=== PATIENT | female | born 1935 | race Caucasian/White ===

== ENCOUNTER 2019-03-11 16:12 | Emergency (ER) | payer MEDICARE ==
--- NOTE | 2019-03-11 16:20 | ER Report ---
History and Physical Time Seen By MD: 16:17 HPI/ROS CHIEF COMPLAINT: Right arm numbness and weakness 6 weeks, bilateral numbness of feet, legs get cold at night HISTORY OF PRESENT ILLNESS: 83-year-old female patient presents to the emergency room with complaint of right arm numbness and weakness 6 weeks. She states that this started with no injury. She states she does have pain seems to worsen the hand. Patient states that she has weakness in the hand. She states she's not able to open any jars. She states she is to give them to her daughter to open. She states she does have pain to the hand, she states she does have pain to the shoulder as well. She states she is not taking any medication for this. Patient states over the last week she has had numbness and coldness to the bilateral lower extremities. She states that often times discussed that she feels fine, but then at 4:00 in the morning her arms are especially cold. She states that she has not had any injury. She hasn't taken any medication for this. She was referred to the emergency room by her make up operator helper after an evaluation and being told about the symptoms she is having with her arm and legs. REVIEW OF SYSTEMS: Respiratory: No cough, no dyspnea. Cardiovascular: No chest pain, no palpitations. Gastrointestinal: No vomiting, no abdominal pain. Musculoskeletal: No back pain. Allergies: Coded Allergies: No Known Drug Allergies (Unverified , 03/11/19) Home Meds Active Scripts Methylprednisolone (METHYLPREDNISOLONE) 4 Mg Tab.ds.pk, 4 MG PO DIRECTED, #21 TAB Prov:JODYNUBIA ETCHER [employer]ENG[employer]VING 03/11/19 Reported Medications Lisinopril (LISINOPRIL) 40 Mg Tablet, 40 MG PO QDAY, TAB 03/11/19 Amlodipine Besylate (AMLODIPINE BESYLATE) 5 Mg Tablet, 1 TAB PO QDAY, TAB 03/11/19 Carvedilol (CARVEDILOL) 6.25 Mg Tab, 6.25 MG PO BID, TAB 03/11/19 Cholecalciferol (Vitamin D3) (VITAMIN D3) 1,000 Unit Tablet, 5000 UNIT PO QDAY, TAB 03/11/19 Aspirin (ASPIR 81) 81 Mg Tablet.dr, 81 MG PO QDAY, TAB 03/11/19 Past Medical/Surgical History Patient has no pertinent medical history. Patient has surgical history of ablation. Reviewed Nurses Notes: Yes Constitutional Vital Sign - Last 24 Hours 03/11/19 03/11/19 03/11/19 03/11/19 16:16 16:27 16:30 16:42 Temp 98.2 Pulse 77 71 87 Resp 18 B/P (MAP) 195/100 150/79 (102) Pulse Ox 93 93 94 O2 Delivery Room Air 03/11/19 03/11/19 03/11/19 03/11/19 17:27 17:30 17:42 17:57 Pulse 71 74 73 B/P (MAP) 156/86 (109) Pulse Ox 92 89 90 03/11/19 03/11/19 03/11/19 03/11/19 18:00 18:05 18:20 18:30 Pulse 71 72 B/P (MAP) 152/88 (109) 165/90 (115) Pulse Ox 90 97 03/11/19 03/11/19 18:35 18:50 Pulse 68 Pulse Ox 91 78 Physical Exam General Appearance: The patient is alert, has no immediate need for airway protection and no current signs of toxicity. Respiratory: Chest is non tender, lungs are clear to auscultation. Cardiac: regular rate and rhythm Gastrointestinal: Abdomen is soft and non tender, no masses, bowel sounds normal. Musculoskeletal: Neck: Neck is supple and non tender. Extremities have full range of motion and are non tender. Skin: No rashes or lesions. Neuro: Patient has no scleral weakness in the right arm and hand. Patient has good sensation in her feet as well as good strength with flexion and extension. Cranial nerves II through XII grossly intact. DIFFERENTIAL DIAGNOSIS: After history and physical exam differential diagnosis was considered for stroke, thoracic outlet syndrome, stenosis of the descending aorta. Medical Decision Making Data Points Result Diagram: 03/11/19 1620 03/11/19 1620 Laboratory Hematology Test 03/11/19 16:20 White Blood Count 8.7 k/uL (4.5-11.0) Red Blood Count 4.96 M/uL (4.17-5.56) Hemoglobin 16.0 g/dL (12.0-16.0) Hematocrit 46.5 % (34.0-47.0) Mean Corpuscular Volume 93.8 fL (80.0-96.0) Mean Corpuscular Hemoglobin 32.3 pg (26.0-33.0) Mean Corpuscular Hemoglobin Concent 34.4 g/dL (32.0-36.0) Red Cell Distribution Width 14.0 % (11.5-14.5) Platelet Count 266 K/uL (150-450) Mean Platelet Volume 9.3 fL (7.2-11.1) Neutrophils (%) (Auto) 61.4 % (39.4-72.5) Lymphocytes (%) (Auto) 23.7 % (17.6-49.6) Monocytes (%) (Auto) 8.6 % (4.1-12.4) Eosinophils (%) (Auto) 5.5 % (0.4-6.7) Basophils (%) (Auto) 0.8 % (0.3-1.4) Nucleated RBC Relative Count (auto) 0.1 /100WBC Neutrophils # (Auto) 5.3 K/uL (2.0-7.4) Lymphocytes # (Auto) 2.1 K/uL (1.3-3.6) Monocytes # (Auto) 0.7 K/uL (0.3-1.0) Eosinophils # (Auto) 0.5 K/uL (0.0-0.5) Basophils # (Auto) 0.1 K/uL (0.0-0.1) Nucleated RBC Absolute Count (auto) 0.01 K/uL Chemistry Test 03/11/19 16:20 Sodium Level 138 mmol/L (137-145) Potassium Level 4.2 mmol/L (3.5-5.0) Chloride Level 103 mmol/L (98-107) Carbon Dioxide Level 26 mmol/L (22-31) Blood Urea Nitrogen 22 mg/dl (7-18) Creatinine 0.90 mg/dl (0.52-1.04) Glomerular Filtration Rate Calc > 60.0 Random Glucose 104 mg/dl (75-110) Calcium Level 10.0 mg/dl (8.4-10.2) Total Bilirubin 0.5 mg/dl (0.2-1.3) Aspartate Amino Transf (AST/SGOT) 29 U/L (0-35) Alanine Aminotransferase (ALT/SGPT) 34 U/L (0-56) Alkaline Phosphatase 63 U/L (0-126) Troponin I < 0.012 ng/ml B-Type Natriuretic Peptide 106 pg/ml (0-100) Total Protein 7.4 g/dl (6.3-8.2) Albumin 4.6 g/dl (3.5-5.0) Coagulation Test 03/11/19 16:20 Prothrombin Time 12.5 seconds (12.0-14.4) Prothromb Time International Ratio 0.93 Activated Partial Thromboplast Time 27 seconds (23-35) EKG/Imaging EKG Interpretation 12 lead EKG: Rhythm: normal sinus rhythm [place]: normal QRS: normal ST segments: Nonspecific ST abnormality Imaging EXAMINATION: CT Cervical spine without intravenous contrast HISTORY: Weakness to right arm. COMPARISON: None. TECHNIQUE: Axial images were obtained from the skull base through the upper thoracic spine without IV contrast administration. Coronal and sagittal reformatted images were obtained from the axial source data. One of the following dose optimization techniques was utilized in the performance of this exam: Automated exposure control; adjustment of the mA and/or kV according to the patient's size; or use of an iterative recons truction technique. Specific details can be referenced in the facility's radiology CT exam operational policy. FINDINGS: Alignment: Normal. Cranio-cervical junction: Negative. Vertebral bodies: Vertebral body heights are maintained. No acute fracture. Posterior elements: Negative. No acute fracture. Hardware: None. Disc Spaces: Moderate multilevel disc degenerative changes. There are disc bul ges and posterior endplate osteophytes at multiple levels. There is mild narrowing of the spinal canal at the C2-3 and C3-4 levels. There is moderate spinal canal stenosis at the C4-5 level, mild to moderate spinal canal stenosis at the C5-6 level, and mild spinal canal stenosis at the C6-7 level. U ncovertebral spurring narrows the neural foramina at multiple levels. On the right there is mild neural foraminal stenosis at the C3-4 level, moderate neural foraminal stenosis at the C4-5 level, moderate to severe neural foraminal stenosis at the C5-6 level, and mild neural foraminal stenosis at the C6-7 level. On the left there is mild neural foraminal stenosis at the C3-4 level and C4-5 level, moderate neural foraminal stenosis at the C5-6 level, and mild neural foraminal stenosis at the C6-7 level. Soft tissues: Diffuse nodularity of the thyroid gland. Visualized upper chest: Mild calcified plaque at the aortic arch and origins of the subclavian arteries. IMPRESSION: No acute fracture or dislocation of the cervical spine. Moderate multilevel cervical spondylosis. There is moderate spinal canal stenosis at the C4-5 level and mild to moderate spinal canal stenosis at the C5- 6 level. Multilevel neural foraminal stenosis is greatest on the right at the C5-6 level where there is moderate to severe neural foraminal stenosis. Report Dictated By: Israel Yang MD at 03/11/2019 6:10 PM Report E-Signed By: Israel Yang MD at 03/11/2019 6:21 PM EXAMINATION: Chest 2 Views HISTORY: Weakness, leg numbness COMPARISON: None. FINDINGS: The lungs are clear. No focal consolidation or pleural fluid. No pneumothorax. Normal cardiomediastinal silhouette, with normal heart size and pulmonary vascularity. Aortic calcification. Visualized osseous structures are unremarkable. IMPRESSION: Negative chest. Report Dictated By: Memo Phillips MD at 03/11/2019 5:25 PM Report E-Signed By: Memo Phillips MD at 03/11/2019 5:26 PM EXAMINATION: CT head without IV contrast HISTORY: Right hand numbness COMPARISON: None. TECHNIQUE: Contiguous axial images were obtained from the skull base to the vertex without intravenous contrast. Sagittal and coronal reformatted images are also submitted. One of the following dose optimization techniques was utilized in the pe rformance of this exam: Automated exposure control; adjustment of the mA and/or kV according to the patient's size; or use of an iterative reconstruction technique. Specific details can be referenced in the facility's radiology CT exam operational policy. FINDINGS: Brain volume: Mild generalized atrophy with associated concordant prominence of the ventricular system. Ventricles: Normal. Acute ischemic changes: None. Hemorrhage: None. Masses/edema: None. Barber-white: Negative. White matter: Patchy low-density in the left frontal subcortical white matter, anterior to the motor strip. Vessels: Calcified plaque of the vertebral arteries and carotid siphons at the skull base. Extra-axial: Negative. Calvarium/scalp: Negative. Skull base/visualized face: Negative. Visualized sinuses/orbits: Negative. IMPRESSION: 1. No acute atrial findings or focal abnormalities to explain patient's symptoms. 2. Mild atrophy, atherosclerotic disease and chronic appearing white matter changes likely related to age and vascular risk factors. Report Dictated By: GENIE DUPREE at 03/11/2019 5:28 PM Report E-Signed By: GENIE DUPREE at 03/11/2019 5:31 PM EXAMINATION: CT Thoracic spine without intravenous contrast HISTORY: Weakness to right arm. COMPARISON: None. TECHNIQUE: Axial images were obtained through the thoracic spine without IV contrast administration. Coronal and sagittal reformatted images were obtained from the axial source data. One of the following dose optimization techniques was utilized in the performance of this exam: Automated exposure control; adjustment of the mA and/or kV according to the patient's size; or use of an iterative reconstruction technique. Specific details can be referenced in the facility's radiology CT exam operational policy. FINDINGS: Alignment: Normal. Vertebral bodies: Vertebral body heights are maintained. The bones are diffusely osteopenic. No acute fracture. Posterior elements: No acute fracture. Hardware: None. Disc Spaces: Multilevel disc degenerative changes with vacuum disc phenomenon an d endplate osteophytes at multiple level. Posterior disc osteophyte complex at the C6-7 level causes mild spinal canal stenosis. Small disc bulges/protrusions at other levels slightly narrow the thecal sac. Soft tissues: Negative. Visualized lungs / abdomen: A 10 mm nodule in the right lobe of the thyroid. Calcified plaque at the aortic arch and origins of the great vessels. Splenic artery calcifications. Coronary artery calcifications. IMPRESSION: No acute fracture or dislocation of the thoracic spine. Mild multilevel disc degenerative changes in the thoracic spine. Posterior disc osteophyte complex at the C6-7 levels causes mild spinal canal stenosis. Coronary artery calcifications. A solitary 10 mm thyroid nodule in the right lobe has no suspicious features. In the absence of clinical risk factors for thyroid cancer, this finding is highly likely benign and no additional imaging or follow-up is recommended. Report Dictated By: Israel Yang MD at 03/11/2019 5:42 PM Report E-Signed By: Israel Yang MD at 03/11/2019 5:51 PM ED Course/Re-evaluation ED Course Patient was admitted to exam room, history and physical were obtained. Different ial diagnoses were considered. On examination lungs are clear, heart is regular, abdomen soft nontender. Patient did have noticeable weakness to the right arm. She did note pain with movement of the right arm but definitely had a weak mechanical oxidizer. Patient had no tenderness to the lower legs. She had good strength with dorsal flexion and plantar flexion of the feet and ankles. A CT scan of the head, cervi nahoim spine, thoracic spine and chest x-ray were done. A CBC, CMP, BNP, EKG, troponin were done. Troponin was negative, BNP was 106, EKG showed a normal sinus rhythm with a nonspecific ST abnormality. CBC, CMP were unremarkable. CT scan of the cervical spine did show some moderate spinal canal narrowing. That was noted at C4-C5 and C6-C7. Thoracic spine did show some narrowing at C6-C7 as well. CT scan of head showed no acute findings. With the findings being most notable in the cervical spine I did discuss the case with Dr. Cotton. His recognition was start her on a Medrol Dosepak. She is welcome to follow-up with him in the clinic February. She may return to [place] as scheduled in April as l fran as she is not having any loss of bowel or bladder function or stumbling over her feet. I discussed the patient who verbalized understanding and agreement. I explained that it was my hope that with the Medrol Dosepak would decrease the swelling where there is narrowing of the spinal canal which would help with the symptoms that she is having. Patient verbalized understanding and agreement with plan. Decision to Disposition Date: Mar 11, 2019 Decision to Disposition Time: 19:05 Depart Departure Latest Vital Signs Vital Signs Date Time Temp Pulse Resp B/P (MAP) Pulse Ox O2 Delivery O2 Flow Rate FiO2 03/11/19 18:50 78 03/11/19 18:35 68 03/11/19 18:30 165/90 (115) 03/11/19 16:16 98.2 18 Room Air Impression: Primary Impression: Cervical radiculopathy Condition: Improved Disposition: HOME OR SELF-CARE Referrals: GENIE COTTON MD New Scripts Methylprednisolone (METHYLPREDNISOLONE) 4 Mg Tab.ds.pk 4 MG PO DIRECTED, #21 TAB Prov: NUBIA VERA 03/11/19 Patient Instructions: Cervical Radiculopathy (ED) Additional Instructions: Increase fluid intake. Get plenty of rest. Take the medication as prescribed. Return to the ER if condition worsens. Talking with Dr. Cotton, he felt that as long as you weren't having any bowel or bladder incontinence or stumbling over your feet that you could wait until you went home to be evaluated. If these occur you need to be evaluated NETO. Dr. Cotton would be more than happy to evaluate you while you are in the [place] area, call to make an appointment. NUBIA VERA [facility] Mar 11, 2019 16:20
[2019-03-11] MEDS ORDERED: CHOL10005 PO (16:23)
[2019-03-11] MEDS ORDERED: ASPI-1471 PO (16:23)
[2019-03-11] MEDS ORDERED: CAR6.25 PO (16:25)
[2019-03-11] MEDS ORDERED: LISI-374 PO (16:25)
[2019-03-11] MEDS ORDERED: AMLO-125 PO (16:25)
[2019-03-11] MEDS ORDERED: NS(*) 0.9% 500 ML BAG 500 ML IV ONE (16:35)
--- NOTE | 2019-03-11 17:18 | EKG ---
FACILITY: [facility] PATIENT NAME: DENNIS TORREZ : [id number] MR: [id number] V: [id number] EXAM DATE: ORDERING PHYSICIAN: NUBIA VERA TECHNOLOGIST: Test Reason : weakness of right arm Blood Pressure : / mmHG Vent. Rate : 070 BPM Atrial Rate : 070 BPM P-R Int : 172 ms QRS Dur : 092 ms QT Int : 380 ms P-R-T Axes : 068 005 074 degrees QTc Int : 410 ms Sinus rhythm with PAC No ST-T abnormalities No previous ECGs available Confirmed by TWYLA ELIZABETH ([id number]) on 03/11/2019 10:24:15 PM Referred By: Confirmed By:TWYLA ELIZABETH
[2019-03-11 17:23] LABS: PLATELET COUNT, AUTOMATED 266 K/uL (150-450)
--- NOTE | 2019-03-11 17:33 | RADIOLOGY IMAGING REPORT ---
FACILITY: [facility] [place] PATIENT NAME: Citlaly Obrien : 1935 MR: [id number] V: [id number] EXAM DATE: ORDERING PHYSICIAN: NUBIA VERA TECHNOLOGIST: [place] [facility] [place] Citlaly Obrien : 1935 Visit/Account:[id number] Date of Sevice: 03/11/2019 EXAMINATION: Chest 2 Views HISTORY: Weakness, leg numbness COMPARISON: None. FINDINGS: The lungs are clear. No focal consolidation or pleural fluid. No pneumothorax. Normal cardiomediastinal silhouette, with normal heart size and pulmonary vascularity. Aortic calcifi cation. Visualized osseous structures are unremarkable. IMPRESSION: Negative chest. Report Dictated By: Memo Phillips MD at 03/11/2019 5:25 PM Report E-Signed By: Memo Phillips MD at 03/11/2019 5:26 PM WSN:[id number]
[2019-03-11 17:38] LABS: INR 0.93
--- NOTE | 2019-03-11 17:39 | RADIOLOGY IMAGING REPORT ---
FACILITY: [facility] PATIENT NAME: Citlaly Obrien : 1935 MR: [id number] V: [id number] EXAM DATE: ORDERING PHYSICIAN: NUBIA VERA TECHNOLOGIST: Location: [facility] [place] Patient: Citlaly Obrien : 1935 Visit/Account:[id number] Date of Sevice: 03/11/2019 EXAMINATION: CT head without IV contrast HISTORY: Right hand numbness COMPARISON: None. TECHNIQUE: Contiguous axial images were obtained from the skull base to the vertex without intraven ous contrast. Sagittal and coronal reformatted images are also submitted. One of the following dose optimization techniques was utilized in the performance of this exam: Autom ated exposure control; adjustment of the mA and/or kV according to the patient's size; or use of an i terative reconstruction technique. Specific details can be referenced in the facility's radiology C T exam operational policy. FINDINGS: Brain volume: Mild generalized atrophy with associated concordant prominence of the ventricular syst em. Ventricles: Normal. Acute ischemic changes: None. Hemorrhage: None. Masses/edema: None. Barber-white: Negative. White matter: Patchy low-density in the left frontal subcortical white matter, anterior to the motor strip. Vessels: Calcified plaque of the vertebral arteries and carotid siphons at the skull base. Extra-axial: Negative. Calvarium/scalp: Negative. Skull base/visualized face: Negative. Visualized sinuses/orbits: Negative. IMPRESSION: 1. No acute atrial findings or focal abnormalities to explain patient's symptoms. 2. Mild atrophy, atherosclerotic disease and chronic appearing white matter changes likely related t o age and vascular risk factors. Report Dictated By: GENIE DUPREE at 03/11/2019 5:28 PM Report E-Signed By: GENIE DUPREE at 03/11/2019 5:31 PM WSN:[email or web address]
--- NOTE | 2019-03-11 17:58 | RADIOLOGY IMAGING REPORT ---
FACILITY: [facility] [place] PATIENT NAME: Citlaly Obrien : 1935 MR: [id number] V: [id number] EXAM DATE: ORDERING PHYSICIAN: NUBIA VERA TECHNOLOGIST: Location: [facility] [place] Patient: Citlaly Obrien : 1935 Visit/Account:[id number] Date of Sevice: 03/11/2019 EXAMINATION: CT Thoracic spine without intravenous contrast HISTORY: Weakness to right arm. COMPARISON: None. TECHNIQUE: Axial images were obtained through the thoracic spine without IV contrast administration. Coronal and sagittal reformatted images were obtained from the axial source data. One of the following dose optimization techniques was utilized in the performance of this exam: Autom ated exposure control; adjustment of the mA and/or kV according to the patient's size; or use of an i terative reconstruction technique. Specific details can be referenced in the facility's radiology C T exam operational policy. FINDINGS: Alignment: Normal. Vertebral bodies: Vertebral body heights are maintained. The bones are diffusely osteopenic. No acute fracture. Posterior elements: No acute fracture. Hardware: None. Disc Spaces: Multilevel disc degenerative changes with vacuum disc phenomenon and endplate osteophyte s at multiple level. Posterior disc osteophyte complex at the C6-7 level causes mild spinal canal connor nosis. Small disc bulges/protrusions at other levels slightly narrow the thecal sac. Soft tissues: Negative. Visualized lungs / abdomen: A 10 mm nodule in the right lobe of the thyroid. Calcified plaque at the aortic arch and origins of the great vessels. Splenic artery calcifications. Coronary artery calcific ations. IMPRESSION: No acute fracture or dislocation of the thoracic spine. Mild multilevel disc degenerative changes in the thoracic spine. Posterior disc osteophyte complex at the C6-7 levels causes mild spinal canal stenosis. Coronary artery calcifications. A solitary 10 mm thyroid nodule in the right lobe has no suspicious features. In the absence of clini nahomi risk factors for thyroid cancer, this finding is highly likely benign and no additional imaging o r follow-up is recommended. Report Dictated By: Israel Yang MD at 03/11/2019 5:42 PM Report E-Signed By: Israel Yang MD at 03/11/2019 5:51 PM WSN:[id number]
--- NOTE | 2019-03-11 18:27 | RADIOLOGY IMAGING REPORT ---
FACILITY: [facility] PATIENT NAME: Citlaly Obrien : 1935 MR: [id number] V: [id number] EXAM DATE: ORDERING PHYSICIAN: NUBIA VERA TECHNOLOGIST: Location: [facility] Patient: Citlaly Obrien : 1935 Visit/Account:[id number] Date of Sevice: 03/11/2019 EXAMINATION: CT Cervical spine without intravenous contrast HISTORY: Weakness to right arm. COMPARISON: None. TECHNIQUE: Axial images were obtained from the skull base through the upper thoracic spine without I V contrast administration. Coronal and sagittal reformatted images were obtained from the [facility] e data. One of the following dose optimization techniques was utilized in the performance of this exam: Autom ated exposure control; adjustment of the mA and/or kV according to the patient's size; or use of an i terative reconstruction technique. Specific details can be referenced in the facility's radiology C T exam operational policy. FINDINGS: Alignment: Normal. Cranio-cervical junction: Negative. Vertebral bodies: Vertebral body heights are maintained. No acute fracture. Posterior elements: Negative. No acute fracture. Hardware: None. Disc Spaces: Moderate multilevel disc degenerative changes. There are disc bulges and posterior endpl ate osteophytes at multiple levels. There is mild narrowing of the spinal canal at the C2-3 and C3-4 levels. There is moderate spinal canal stenosis at the C4-5 level, mild to moderate spinal canal sten osis at the C5-6 level, and mild spinal canal stenosis at the C6-7 level. Uncovertebral spurring narr ows the neural foramina at multiple levels. On the right there is mild neural foraminal stenosis at t he C3-4 level, moderate neural foraminal stenosis at the C4-5 level, moderate to severe neural forami nal stenosis at the C5-6 level, and mild neural foraminal stenosis at the C6-7 level. On the left the re is mild neural foraminal stenosis at the C3-4 level and C4-5 level, moderate neural foraminal sten osis at the C5-6 level, and mild neural foraminal stenosis at the C6-7 level. Soft tissues: Diffuse nodularity of the thyroid gland. Visualized upper chest: Mild calcified plaque at the aortic arch and origins of the subclavian arteri es. IMPRESSION: No acute fracture or dislocation of the cervical spine. Moderate multilevel cervical spondylosis. There is moderate spinal canal stenosis at the C4-5 level a nd mild to moderate spinal canal stenosis at the C5-6 level. Multilevel neural foraminal stenosis is greatest on the right at the C5-6 level where there is modera te to severe neural foraminal stenosis. Report Dictated By: Israel Yang MD at 03/11/2019 6:10 PM Report E-Signed By: Israel Yang MD at 03/11/2019 6:21 PM WSN:[id number]
[2019-03-11 18:30] VITALS: BP 165/90
[2019-03-11] MEDS ORDERED: METH4TAB66 PO (19:09)
== END 2019-03-11 19:15 | disposition home or self-care (01) ==
LOC: ER 16:17
DX: M54.12 Radiculopathy, cervical region (principal); E04.1 Nontoxic single thyroid nodule; M25.511 Pain in right shoulder; M79.641 Pain in right hand; M47.9 Spondylosis, unspecified
CPT/HCPCS: 70450; 71046; 72125; 72128; 83880; 84484; 85025; 85610; 85730; 93005; 96360; 99284; J7040; 82040; 82247; 82310; 82374; 82435; 82565; 82947; 84075; 84132; 84155; 84295; 84450; 84460; 84520